=== PATIENT | female | born 1990 | race Caucasian/White ===

== ENCOUNTER → 2016-08-22 | Outpatient (CLI) | payer OTHER | LOC: HEART 5 13:04 | DX: R00.2 Palpitations (principal); R00.0 Tachycardia, unspecified | CPT/HCPCS: 93306 ==

== ENCOUNTER 2016-08-27 14:16 | Emergency (ER) | payer OTHER | END 2016-08-27 14:57 | disposition home or self-care (01) | LOC: ER1 14:16 | DX: M54.31 Sciatica, right side (principal); I10 Essential (primary) hypertension; I48.91 Unspecified atrial fibrillation | CPT/HCPCS: 96372; 99283; J1100; J1885 ==

== ENCOUNTER 2016-09-03 09:22 | Emergency (ER) | payer OTHER | END 2016-09-03 13:24 | disposition home or self-care (01) | LOC: ER1 09:22 | DX: M51.16 Intervertebral disc disorders with radiculopathy, lumbar region (principal); N39.0 Urinary tract infection, site not specified; I10 Essential (primary) hypertension; F17.200 Nicotine dependence, unspecified, uncomplicated; Z88.8 Allergy status to other drugs, medicaments and biological substances; Z79.899 Other long term (current) drug therapy | CPT/HCPCS: 36415; 72131; 81001; 84703; 96372; 99284; J1100; J1885 ==

== ENCOUNTER 2016-09-26 12:49 | Emergency (ER) | payer OTHER | END 2016-09-26 15:07 | disposition home or self-care (01) | LOC: ER1 12:49 | DX: M54.41 Lumbago with sciatica, right side (principal); R32 Unspecified urinary incontinence; Z79.899 Other long term (current) drug therapy | CPT/HCPCS: 81001; 84703; 99283 ==

== ENCOUNTER → 2017-02-01 | Outpatient (CLI) | payer OTHER | LOC: RAD 14:23 | DX: J45.40 Moderate persistent asthma, uncomplicated (principal); R06.02 Shortness of breath | CPT/HCPCS: 71020 ==